=== PATIENT | female | born 1960 | race Caucasian/White ===

== ENCOUNTER 2018-01-07 16:08 | Outpatient (CLI) | payer OTHER ==
[2018-01-07 17:17] LABS: BASOPHILS % 0.5 (0.0-1.5); EOSINOPHILS % 2.4 % (0.0-6.8); MEAN CORPUSCULAR HEMOGLOBIN 29.9 pg (28.0-34.0); MEAN CORPUSCULAR VOLUME 93.3 fl (80.0-100.0); MONOCYTES % 4.7 % (0.0-11.0); NEUTROPHILS # 6.8 # k/uL (1.4-7.7)
== END 2018-01-07 16:10 ==
LOC: LAB 16:08
PROVIDERS: ATTEND Family Medicine
DX: L03.119 Cellulitis of unspecified part of limb (principal)
CPT/HCPCS: 85025; 87040

== ENCOUNTER 2018-01-08 15:20 | Outpatient (CLI) | payer OTHER ==
[2018-01-08 16:25] LABS: eGFR (African) 24; eGFR (Non-African) 20
== END 2018-01-08 15:22 ==
LOC: LAB 15:20
PROVIDERS: ATTEND Family Medicine
DX: D64.9 Anemia, unspecified (principal)
CPT/HCPCS: 36415; 80048; 82607; 82746; 83540; 83550

== ENCOUNTER 2018-01-20 14:57 | Outpatient (CLI) | payer OTHER ==
[2018-01-20 15:19] LABS: MEAN CORPUSCULAR HEMOGLOBIN 29.2 pg (28.0-34.0); MEAN CORPUSCULAR VOLUME 94.3 fl (80.0-100.0)
[2018-01-20 15:28] LABS: APPEARANCE,URINE CLEAR (CLEAR); COLOR,URINE YELLOW (YELLOW); OCCULT BLOOD,URINE NEGATIVE (NEGATIVE); PH URINE 5.5 (5.0 - 8.0); UROBILINOGEN URINE 0.2 Eu (0.2-1.0)
[2018-01-20 15:32] LABS: eGFR (African) > 60; eGFR (Non-African) > 60
== END 2018-01-20 15:04 ==
LOC: LAB 14:57
PROVIDERS: ATTEND Family Medicine
DX: D64.9 Anemia, unspecified (principal); R79.89 Other specified abnormal findings of blood chemistry
CPT/HCPCS: 36415; 80048; 81002; 85027; 85651

== ENCOUNTER 2018-02-06 09:16 | Outpatient (CLI) | payer OTHER ==
[2018-02-06 09:48] LABS: EOSINOPHILS % 2.9 % (0.0-6.8); MEAN CORPUSCULAR HEMOGLOBIN 29.8 pg (28.0-34.0); MEAN CORPUSCULAR VOLUME 91.4 fl (80.0-100.0); MONOCYTES % 3.7 % (0.0-11.0); NEUTROPHILS # 4.2 # k/uL (1.4-7.7)
[2018-02-06 10:06] LABS: eGFR (African) > 60; eGFR (Non-African) > 60
--- NOTE | 2018-02-06 22:52 | Diagnostic Imaging Report ---
[facility] [id number] [facility] [place] [facility] [address], [place]. [address] Report Submission Date: Feb 06, 2018 9:50:10 AM CDT Patient Study Name: EMIL COTTO Date: Feb 06, 2018 9:28:27 AM CDT Modality Type: DX Gender: F Description: CHEST : 60 Institution: [facility] Physician: TRAVIS MCQUEEN Examination: PA and lateral chest. History: Evaluate lung griffith. CXR, ERYTHEMA NODOSUM, NO CHEST COMPLAINTS (Hx) Comparison exam: None provided. Findings: PA lateral chest demonstrate a normal cardiac and mediastinal silhouette. No focal infiltrate. No blunting of the costophrenic margins. Osseous structures are appropriate for age. Impression: No acute pulmonary process. Electronically signed on Feb 06, 2018 9:50:10 AM CDT by: Sergio COATES
== END 2018-02-06 09:18 ==
LOC: RAD 09:16
PROVIDERS: ATTEND Dermatology
DX: L52 Erythema nodosum (principal)
CPT/HCPCS: 36415; 71046; 80053; 85025; 85651; 86060; 86480